=== PATIENT | male | born 1965 ===

== ENCOUNTER 2023-08-11 04:22 | Day surgery (SDC) | payer OTHER ==
[2023-08-06 12:36] VITALS: BMI 29.8
[2023-08-11] MEDS ORDERED: BUPIVACAINE HCL/PF 0.25% (2.5MG/ML) 10 ML VIAL ONE (10:34)
[2023-08-11] MEDS ORDERED: oxyCODONE HCL 5 MG TABLET PO PRN ×2 (12:49)
[2023-08-11] MEDS ORDERED: PROMETHAZINE HCL 25 MG/1 ML VIAL IVPB PRN (12:49)
[2023-08-11] MEDS ORDERED: ONDANSETRON 4 MG/2 ML VIAL IVPUSH PRN (12:49)
[2023-08-11] MEDS ORDERED: ACETAMINOPHEN INJECTION 100 ML IVPB ONE (12:56)
[2023-08-11] MEDS ORDERED: SEVOFLURANE 250 ML BTL ONE (12:56)
[2023-08-11] MEDS ORDERED: PROPOFOL 40 ML ONE (12:56)
[2023-08-11] MEDS ORDERED: FENTANYL CITRATE/PF 50 MCG/ML VIAL ONE ×5 (12:57→16:26)
[2023-08-11] MEDS ORDERED: LIDOCAINE HCL/PF 2% SDV 5ML VIAL ONE (12:57)
[2023-08-11] MEDS ORDERED: ceFAZolin SODIUM 1 GM VIAL ONE (12:57)
[2023-08-11] MEDS ORDERED: ROCURONIUM BROMIDE 50 MG/5 ML SYRINGE ONE ×2 (12:57→14:33)
[2023-08-11] MEDS ORDERED: SUGAMMADEX SODIUM 200 MG/2 ML VIAL ONE (12:57)
[2023-08-11] MEDS ORDERED: ONDANSETRON 4 MG/2 ML VIAL ONE (12:57)
[2023-08-11] MEDS ORDERED: MIDAZOLAM HCL 2 MG/2 ML SINGLE DOSE VIAL ONE ×2 (12:57→13:40)
[2023-08-11] MEDS ORDERED: DEXAMETHASONE SOD PHOSPHATE 4 MG/1 ML VIAL ONE ×2 (12:57→13:29)
[2023-08-11] MEDS ORDERED: LACTATED RINGERS SOLUTION 1,000 ML IV SCH (13:00)
[2023-08-11] MEDS: ceFAZolin SODIUM 1 GM VIAL IVPB ONE (13:31)
[2023-08-11] MEDS: HEPARIN NA (PORCINE) 5,000 UNITS/ML 1ML VIAL SQ ONE (13:55)
[2023-08-11] MEDS ORDERED: hydrALAZINE HCL 20 MG/ML VIAL ONE (13:56)
[2023-08-11] MEDS: BUPIVACAINE HCL/PF 0.25% (2.5MG/ML) 10 ML VIAL IJ ONE ×3 (14:01)
[2023-08-11] MEDS ORDERED: KETOROLAC TROMETHAMINE 30 MG/1 ML VIAL ONE (14:08)
[2023-08-11 20:17] VITALS: BP 129/76; PULSE 69; RESP 18; TEMP 97.7
[2023-08-11] MEDS ORDERED: ACETAMINOPHEN 1000 MG/100 ML BAG IVPB ONE (20:30)
== END 2023-08-11 20:10 | disposition home or self-care (01) ==
LOC: JASU-SURG 04:22
PROVIDERS: ATTEND Surgery
PROC: 8E0W4CZ Robotic Assisted Procedure of Trunk Region, Percutaneous Endoscopic Approach (ICD-10-PCS; 2023-08-11)
PROC: 0WUF4JZ Supplement Abdominal Wall with Synthetic Substitute, Percutaneous Endoscopic Approach (ICD-10-PCS; principal; 2023-08-11 10:30)
DX: K42.9 Umbilical hernia without obstruction or gangrene (principal)
CPT/HCPCS: 49593; S2900; 82962; 86850; 86900; 86901; 94010; 94760; C1781; J0131; J1644